=== PATIENT | female | born 1945 | race Caucasian/White ===

== ENCOUNTER → 2016-09-23 | Outpatient (CLI) | payer OTHER ==
[~2016-09-23] MED LIST: ASPEC81 PO; CALCTAB13 PO; FISHOIL PO; MULT-506 PO
--- NOTE | 2016-09-23 10:24 | DIAGNOSTIC IMAGING REPORT ---
L-SPINE MIN 4 VIEWS ROUTINE CLINICAL HISTORY: LOWER BACK PAIN COMPARISON STUDY: No previous studies for comparison. FINDINGS: There is a mild lumbar levoscoliosis. No fractures subluxations or destructive lesions are visualized. IMPRESSION: No fractures subluxations or destructive lesions are visualized. Electronically signed by: Jose Kothari M.D. 09/23/2016 10:23 AM Dictated Date/Time: 09/23/2016 10:22 AM
== END | disposition home or self-care (01) ==
LOC: C.RADBC 10:04
PROVIDERS: ATTEND Nurse Practitioner Family
DX: M54.5 Low back pain (principal)

== ENCOUNTER → 2016-11-15 | Outpatient (CLI) | payer OTHER ==
--- NOTE | 2016-11-15 14:30 | MAMMOGRAPHY REPORT ---
BILATERAL DIGITAL SCREENING MAMMOGRAM WITH CAD: 11/15/2016 CLINICAL HISTORY: Routine screening. TECHNIQUE: Bilateral CC and MLO views were obtained. Current study was also evaluated with a Compute r Aided Detection (CAD) system. COMPARISON: Comparison is made to exams dated: 10/28/2015 mammogram, 10/24/2014 mammogram, 10/23/2013 m ammogram, 10/11/2012 mammogram, 09/29/2011 mammogram, and 09/23/2010 mammogram - [facility] nter. BREAST COMPOSITION: There are scattered areas of fibroglandular density in both breasts. FINDINGS: The parenchymal pattern is unchanged. No developing mass, architectural distortion or clus ter of suspicious microcalcifications is seen in either breast. IMPRESSION: ACR BI-RADS CATEGORY 2: BENIGN There is no mammographic evidence of malignancy. A 1 year screening mammogram is recommended. The pa tient will receive written notification of the results. Approximately 10% of breast cancers are not detected with mammography. A negative mammographic report should not delay biopsy if a clinically suggestive mass is present. Tesha Hartley M.D. ay/:11/15/2016 12:28:49 Car Worker Helper: Rob Elizabeth RT(R)(M), [facility] letter sent: Normal 1/2 BI-RADS Code: ACR BI-RADS Category 2: Benign
== END | disposition home or self-care (01) ==
LOC: C.MAMM 10:14
PROVIDERS: ATTEND Obstetrics & Gynecology
DX: Z12.31 Encounter for screening mammogram for malignant neoplasm of breast (principal)

== ENCOUNTER → 2017-05-31 | Outpatient (CLI) | payer OTHER | END | disposition home or self-care (01) | LOC: C.MAMM 15:01 | PROVIDERS: ATTEND Family Medicine | DX: M85.80 Other specified disorders of bone density and structure, unspecified site (principal) ==

== ENCOUNTER → 2017-12-02 | Outpatient (CLI) | payer OTHER ==
--- NOTE | 2017-12-02 15:41 | MAMMOGRAPHY REPORT ---
UNILATERAL LEFT DIGITAL DIAGNOSTIC MAMMOGRAM TOMOSYNTHESIS AND TARGETED LEFT ULTRASOUND: 12/02/2017 CLINICAL HISTORY: Callback from screening mammogram for left breast focal asymmetry. TECHNIQUE: The study was acquired using full field digital technology and interpreted from soft copy. Breast tomosynthesis in addition to standard 2D mammography was performed. Spot compression left CC and MLO 2D and tomosynthesis images were obtained. COMPARISON: Comparison is made to exams dated: 11/22/2017 mammogram, 11/15/2016 mammogram, 10/28/2015 m ammogram, 10/24/2014 mammogram, 10/11/2012 mammogram, and 09/29/2011 mammogram - [facility] nter. BREAST COMPOSITION: There are scattered areas of fibroglandular density in left breast. FINDINGS: Spot compression views demonstrate a persistent 5 mm focal asymmetry within the left 6:00 p osterior breast, best seen on the tomosynthesis images. Targeted ultrasound was performed of the lef t 6:00 breast in the region of the mammographic asymmetry. In the left 6:00 breast, 2 cm from the ni pple, there is an oval isoechoic solid-appearing 6 x 3 x 5 mm mass. The margins are predominantly ci rcumscribed. This likely corresponds with the mammographic asymmetry and is indeterminant. Recommen d ultrasound-guided core needle biopsy for further evaluation. IMPRESSION: ACR BI-RADS CATEGORY 4: SUSPICIOUS, ULTRASOUND ACR BI-RADS CATEGORY 4: SUSPICIOUS Isoechoic 6 mm mass in the left 6:00 breast on ultrasound, which likely corresponds with the new mamm ographic focal asymmetry. The mass is indeterminant and ultrasound-guided core needle biopsy is oracio mmended for further evaluation, with post-clip mammograms to ensure mammographicsonographic concorda nce. A phone call was made to the physician's office to confirm faxed results were received. The patient has been verbally notified of the results. She tentatively scheduled the biopsy before l eaving the department. Some breast cancers are not detected with mammography. A negative mammographic report should not katiuska y biopsy if a clinically suggestive mass is present. Lily Meneses M.D. /:12/02/2017 11:56:59 Machinery Dismantler: Selena Coelho, [facility]; Lily Meneses MD, [facility] letter sent: Abnormal 4/5 OVERALL STUDY BIRADS: 4 Suspicious abnormality
== END | disposition home or self-care (01) ==
LOC: C.MAMM 10:37
PROVIDERS: ATTEND Obstetrics & Gynecology
DX: N63.20 Unspecified lump in the left breast, unspecified quadrant (principal)

== ENCOUNTER → 2017-12-09 | Outpatient (CLI) | payer OTHER ==
--- NOTE | 2017-12-09 14:12 | Discharge Instructions ---
Discharge Instructions Procedure Procedure Date: Dec 09, 2017. Reason for visit: Left Mass. Discharge Discharge Date: Dec 09, 2017. Discharge Diagnosis: status post breast biopsy Instructions Activity Recommendations: Additional Limitations (see below) Return to School/Work: no limitations Recommended Home Diet: No Limitations Provider Instructions: ACTIVITY RECOMMENDATIONS: * No lifting, pushing, pulling or exercising the affected side for three days. RETURN TO SCHOOL/WORK: * You may return to work/school after the procedure, but do not perform any strenuous activities for 24 to 48 hours. MEDICATIONS: * Tylenol (two 325 mg) every four to six hours if needed for mild pain (if not allergic to Tylenol). DIET: * Resume previous diet. SPECIAL CARE INSTRUCTIONS: * Keep biopsy site dry for 24 hours. May shower after 24 hours, but do not soak (bathe) incision. * May remove Tegaderm (plastic patch) 24 hours after procedure * Leave the steri-strips on for one week. Allow the steri-strips to fall off by themselves. If not off after one week, you may remove them. You may place a Bandaid crosswise over the strips, if desired. * Apply ice 10 minutes on and 10 minutes off as needed. * Wear a bra at bedtime to sleep more comfortably for 2-3 days. * Your referring physician should have the results after approximately 5 to 7 business days. * Call for unusual bleeding, fever, drainage, etc or if you have any questions call during normal business hours or after hours call Dr Meneses, . FOLLOW UP VISIT: Follow-up with Referring Physician as scheduled. Allergies Coded Allergies: No Known Allergies (Unverified , 10/11/09) Abel Omalley Recommendations: Call your doctor if: * Temperature above 101 degrees * Pain not relieved by pain medicine ordered * There is increased drainage or redness from any incision * You have any unanswered questions or concerns. Your Doctors Instructions noted above were prepared by provider Lily Meneses. Patient Signature Section: Patient Instructions Signature Page Rose Franklino Patient (or Guardian) Signature/Date: I have read and understand the instructions given to me by my caregivers. Caregiver/RN/Doctor Signature/Date: The above-named patient and/or guardian has received patient instructions on this date. + Original Patient Signature Page (only) stays with chart. Please make copy for patient.
--- NOTE | 2017-12-09 14:35 | MAMMOGRAPHY REPORT ---
ULTRASOUND GUIDED BIOPSY LEFT BREAST: 12/09/2017 CLINICAL HISTORY: Isoechoic mass in the left 6:00 breast, thought to correlate with a mammographic as ymmetry. PATIENT CONSENT: The procedure, risks and benefits were discussed with the patient and informed writt en consent was obtained. A timeout was performed immediately prior to the procedure. PROCEDURE DESCRIPTION: With ultrasound guidance, aseptic technique, and lidocaine as the local anesth etic (1% lidocaine to anesthetize the skin and 1% lidocaine with epinephrine to anesthetize the deepe r tissues), the isoechoic mass in the left 6:00 breast was sampled 4 times with a 14-gauge Achieve bi opsy needle. Immediately thereafter, with ultrasound guidance, a metallic localizer clip was placed at the biopsy site. Direct pressure was applied to the site immediately post procedure until hemost asis was achieved. Postprocedure unilateral mammograms were performed to confirm clip placement; S ee separate dictation for details. Steri-Strips were placed over the site and covered with an Opsite patch. The patient tolerated the procedure without complication. She was given wound care instructi ons. The specimens were sent to pathology for analysis. COMPARISON: Comparison is made to exams dated: 12/02/2017 mammogram, 11/22/2017 mammogram, 12/02/2017 u ltrasound, 11/15/2016 mammogram, 10/28/2015 mammogram, and 10/24/2014 mammogram - [facility]. IMPRESSION: ULTRASOUND GUIDED BIOPSY Ultrasound-guided core needle biopsy of the isoechoic mass in the left 6:00 breast, with clip placeme nt. The patient will receive pathology results from her referring provider. Pending benign patholog y results, recommend follow-up diagnostic tomosynthesis mammograms and possible targeted ultrasound o f the left breast in 6 months to confirm stability. Lily Meneses M.D. /:12/09/2017 14:14:51 Questioned Documents Examiner: RT Nguyen(Altaf)(M), [facility]
--- NOTE | 2017-12-09 14:37 | MAMMOGRAPHY REPORT ---
UNILATERAL LEFT DIGITAL DIAGNOSTIC MAMMOGRAM TOMOSYNTHESIS: 12/09/2017 CLINICAL HISTORY: Status post ultrasound-guided biopsy of a left 6:00 breast mass. TECHNIQUE: The study was acquired using full field digital technology and interpreted from soft copy. Breast tomosynthesis in addition to standard 2D mammography was performed. Postprocedural left CC a nd ML tomosynthesis images and 2D left MLO view were obtained. COMPARISON: Comparison is made to exams dated: 12/02/2017 mammogram, 11/22/2017 mammogram, 11/15/2016 m ammogram, 10/28/2015 mammogram, 10/24/2014 mammogram, and 12/02/2017 ultrasound - [facility]. BREAST COMPOSITION: There are scattered areas of fibroglandular density in left breast. FINDINGS: A new ribbon-shaped biopsy marker clip is seen in the expected location of the biopsied mas s in the left 6:00 breast. The biopsy clip is located at the site of the original mammographic asymm etry, indicating good mammographic- sonographic correlation. No significant postbiopsy hematoma is s een. IMPRESSION: POST PROCEDURE IMAGING FOR MARKER PLACEMENT New biopsy clip status post left breast ultrasound-guided biopsy. Pathology results are pending. Pe nding benign pathology results, recommend follow-up diagnostic tomosynthesis mammogram and possible u ltrasound of the left breast in 6 months. Some breast cancers are not detected with mammography. A negative mammographic report should not katiuska y biopsy if a clinically suggestive mass is present. Lily Meneses M.D. ah/:12/09/2017 14:22:31 Wrapper Stemmer Hand: RT Nguyen(R)(M), [facility] BI-RADS Code: Post Procedure Imaging For Marker Placement
== END | disposition home or self-care (01) ==
LOC: C.MAMM 13:36
PROVIDERS: ATTEND Obstetrics & Gynecology
DX: N60.82 Other benign mammary dysplasias of left breast (principal)

== ENCOUNTER → 2017-12-27 | Outpatient (CLI) | payer OTHER ==
[2017-12-27 12:16] LABS: BASO ABS # 0.05 K/uL (0-0.2); EOS % 2.5 %; EOS ABS # 0.12 K/uL (0-0.5); HEMATOCRIT 38.4 % (37-47); HEMOGLOBIN 12.3 g/dL (12.0-16.0); IG# 0.01 K/uL (0.00-0.02); LYMPH % 35.7 %; LYMPH ABS # 1.74 K/uL (1.2-3.4); MEAN CELL VOLUME 93.4 fL (80-100); MEAN CORPUSCULAR HEMOGLOBIN 29.9 pg (25-34); MEAN PLATELET VOLUME 11.5 fL (7.4-10.4); MONO ABS # 0.49 K/uL (0.11-0.59); NEUT % 50.6 %; NEUT ABS # 2.47 K/uL (1.4-6.5); PLATELET COUNT 236 K/uL (130-400); RED CELL DISTRIBUTION WIDTH SD 47.9 fL (36.4-46.3); WHITE BLOOD COUNT 4.88 K/uL (4.8-10.8)
[2017-12-27 12:37] LABS: BLOOD UREA NITROGEN 21 mg/dl (7-18); CALCIUM 9.8 mg/dl (8.5-10.1); CARBON DIOXIDE 31 mmol/L (21-32); CREATININE 0.92 mg/dl (0.60-1.20); GLUCOSE 75 mg/dl (70-99); SODIUM 141 mmol/L (136-145)
== END | disposition home or self-care (01) ==
LOC: C.CPL 09:54
PROVIDERS: ATTEND Surgery
DX: Z01.818 Encounter for other preprocedural examination (principal); D24.9 Benign neoplasm of unspecified breast